=== PATIENT | female | born 1990 | race Caucasian/White ===

== ENCOUNTER 2017-05-10 13:23 | Emergency (ER) | payer BC, OTHER ==
[~2017-05-10] VITALS: Wt 65.0 kg
[~2017-05-10 13:23] MED LIST: ABILIFY; TRAZ50TA18
[2017-05-10] MEDS ORDERED: IBUPROFEN 600 MG TAB PO ONE (15:30)
[2017-05-10] MEDS ORDERED: HYDROCODONE/APAP (5/325) TAB PO ONE (15:30)
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
[2017-05-10] MEDS ORDERED: IBUP-1542 PO (16:14)
[2017-05-10] MEDS ORDERED: HYDR-906 PO (16:14)
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
== END 2017-05-10 16:24 | disposition home or self-care (01) ==
LOC: FTE 13:23
DX: S43.401A Unspecified sprain of right shoulder joint, initial encounter (principal); E11.9 Type 2 diabetes mellitus without complications; V49.40XA Driver injured in collision with unspecified motor vehicles in traffic accident, initial encounter
CPT/HCPCS: 71010; 72040; 73030; Z7502; Z7610